=== PATIENT | female | born 1990 | race Caucasian/White ===

== ENCOUNTER 2016-09-24 14:57 | Emergency (ER) | payer MEDICAID, OTHER ==
[~2016-09-24] VITALS: Ht 154.9 cm; Wt 45.5 kg
[~2016-09-24 14:57] MED LIST: KLOR20TA6 PO
[2016-09-24 15:03] VITALS: BP 128/74; PULSE 103; RESP 14; TEMP 98.7; O2SAT 97
[2016-09-24] MEDS ORDERED: SODIUM CHLORIDE 0.9% FLUSH 5 ML FLUSH IVF PRN ×2 (15:30→16:15)
[2016-09-24 15:47] LABS: BLOOD, URINE NEG (NEG); COMMENT (UR) CULT NOT INDICATED; CULTURE IF INDICATED CULT NOT INDICATED; GLUCOSE,URINE NEG (NEG); KETONE, URINE NEG (NEG); NITRITE,URINE NEG (NEG); PH, URINE 6.5 (5.0-8.5); SQUAMOUS EPITHELIAL CELL URINE 3 /hpf (0-5); URINE COLOR YELLOW (YELLW/STRAW)
[2016-09-24] MEDS ORDERED: KETOROLAC TROMETHAMINE 30 MG/ML (IVP) VIAL IV PUSH ONE (16:15)
[2016-09-24] MEDS ORDERED: SODIUM CHLOR 0.9% 1000 ML INJ 1,000 ML IV ONE (16:15)
[2016-09-24] MEDS ORDERED: ONDANSETRON HCL 4 MG/2 ML VIAL IV PUSH ONE (16:15)
--- NOTE | 2016-09-24 16:15 | PD ---
HPI Chief Complaint: Flank/Kidney Pain Time Seen by Provider: 15:54 Travel History International Travel<30 days: No Contact w/Intl Traveler<30days: No Traveled to known affect area: No History of Present Illness HPI 26yo F with PMH of nephrolithiasis presents to the ED with c/o epigastric abdominal pain that radiates to right upper abdomen to right back since last night. Denies any fever, chest pain, sob, vomiting, urinary complaints. Pt went to urgent care and was sent here for further testing. PFSH Past Medical History Arthritis: No Asthma: Yes Autoimmune Disease: No Depression: Yes Heart Rhythm Problems: No Cancer: No Cardiovascular Problems: No High Cholesterol: No Chemotherapy: No Chest Pain: No Congestive Heart Failure: No COPD: No Cerebrovascular Accident: No Diabetes: No Diminished Hearing: No Endocrine: No Gastrointestinal Disorders: Yes GERD: Yes Genitourinary: No Headaches: Yes Hiatal Hernia: No Immune Disorder: No Kidney Stones: No Musculoskeletal: Yes Neurologic: Yes Psychiatric: No Reproductive: No Respiratory: Yes Migraines: Yes Radiation Therapy: No Renal Failure: No Seizures: No Sickle Cell Disease: No Sleep Apnea: No Thyroid Disease: No Ulcer: Yes ?: Not : 5 Para: 1 Miscarriage: 4 Ovarian Cysts: Yes Dilation and Curettage (D&C): Yes (x2) Past Surgical History Abdominal Surgery: No AICD: No Arteriovenous Shunt: No Cardiac Surgery: No Ear Surgery: No Endocrine Surgery: No Eye Surgery: No Genitourinary Surgery: No Gynecologic Surgery: Yes (RIGHT FALLOPIAN TUBE REMOVED) Insulin Pump: No Joint Replacement: No Oral Surgery: No Pacemaker: No Thoracic Surgery: No Other Surgery: Yes Social History Alcohol Use: No Tobacco Use: Yes (PPD) Substance Use: No Allergies-Medications (Allergen,Severity, Reaction): Coded Allergies: No Known Allergies (Verified , 09/24/16) Reported Meds & Prescriptions Reported Meds & Active Scripts Active Review of Systems Except as stated in HPI: all other systems reviewed are Neg Physical Exam Narrative GENERAL: 26yo F not in acute distress. SKIN: Warm and dry. HEAD: Atraumatic. Normocephalic. EYES: Pupils equal and round. No scleral icterus. No injection or drainage. ENT: No nasal bleeding or discharge. Mucous membranes pink and moist. NECK: Trachea midline. No JVD. CARDIOVASCULAR: Regular rate and rhythm. No murmur appreciated. RESPIRATORY: No accessory muscle use. Clear to auscultation. Breath sounds equal bilaterally. GASTROINTESTINAL: Abdomen soft,+TTP RUQ. No rebound tenderness or guarding. BACK: +TTP paraspinal muscle on right lumbar spine. No CVA tenderness. MUSCULOSKELETAL: No obvious deformities. No clubbing. No cyanosis. No edema. NEUROLOGICAL: Awake and alert. No obvious cranial nerve deficits. Motor grossly within normal limits. Normal speech. PSYCHIATRIC: Appropriate mood and affect; insight and judgment normal. Data Data Last Documented VS Vital Signs Date Time Temp Pulse Resp B/P Pulse Ox O2 Delivery O2 Flow Rate FiO2 09/24/16 17:23 100 09/24/16 15:03 98.7 103 14 128/74 Room Air Orders Urinalysis - C+S If Indicated (09/24/16 15:07) Ed Urine Pregnancytest Poc (09/24/16 15:16) Sodium Chloride 0.9% Flush (Ns Flush) (09/24/16 15:30) Basic Metabolic Panel (Bmp) (09/24/16 16:10) Complete Blood Count With Diff (09/24/16 16:10) Lipase (09/24/16 16:10) Prothrombin Time / Inr (Pt) (09/24/16 16:10) Act Partial Throm Time (Ptt) (09/24/16 16:10) Ct Abd/Pel W Iv Contrast(Rout) (09/24/16 16:10) Iv Access Insert/Monitor (09/24/16 16:10) Ecg Monitoring (09/24/16 16:10) Oximetry (09/24/16 16:10) Sodium Chloride 0.9% Flush (Ns Flush) (09/24/16 16:15) Ketorolac Inj (Toradol Inj) (09/24/16 16:15) Ondansetron Inj (Zofran Inj) (09/24/16 16:15) Sodium Chlor 0.9% 1000 Ml Inj (Ns 1000 M (09/24/16 16:15) Hepatic Functional Panel (09/24/16 18:08) Iohexol 350 Inj (Omnipaque 350 Inj) (09/24/16 18:28) Labs Laboratory Tests Test 09/24/16 09/24/16 15:10 16:55 Urine Color YELLOW Urine Turbidity HAZY Urine pH 6.5 Urine Specific [place] 1.022 Urine Protein NEG mg/dL Urine Glucose (UA) NEG mg/dL Urine Ketones NEG mg/dL Urine Occult Blood NEG Urine Nitrite NEG Urine Bilirubin NEG Urine Urobilinogen LESS THAN 2.0 MG/DL Urine Leukocyte Esterase NEG Urine RBC 2 /hpf Urine WBC 1 /hpf Urine Squamous Epithelial 3 /hpf Cells Urine Amorphous Sediment RARE Microscopic Urinalysis Comment CULT NOT INDICATED White Blood Count 10.7 TH/MM3 Red Blood Count 4.45 MIL/MM3 Hemoglobin 14.6 GM/DL Hematocrit 42.7 % Mean Corpuscular Volume 95.8 FL Mean Corpuscular Hemoglobin 32.8 PG Mean Corpuscular Hemoglobin 34.3 % Concent Red Cell Distribution Width 13.3 % Platelet Count 184 TH/MM3 Mean Platelet Volume 9.1 FL Neutrophils (%) (Auto) 80.3 % Lymphocytes (%) (Auto) 15.9 % Monocytes (%) (Auto) 3.1 % Eosinophils (%) (Auto) 0.1 % Basophils (%) (Auto) 0.6 % Neutrophils # (Auto) 8.6 TH/MM3 Lymphocytes # (Auto) 1.7 TH/MM3 Monocytes # (Auto) 0.3 TH/MM3 Eosinophils # (Auto) 0.0 TH/MM3 Basophils # (Auto) 0.1 TH/MM3 CBC Comment DIFF FINAL Differential Comment Prothrombin Time 10.2 SEC Prothromb Time International 0.9 RATIO Ratio Activated Partial 25.2 SEC Thromboplast Time Sodium Level 139 MEQ/L Potassium Level 3.8 MEQ/L Chloride Level 107 MEQ/L Carbon Dioxide Level 24.6 MEQ/L Anion Gap 7 MEQ/L Blood Urea Nitrogen 14 MG/DL Creatinine 0.96 MG/DL Estimat Glomerular Filtration 69 ML/MIN Rate Random Glucose 117 MG/DL Calcium Level 8.8 MG/DL Total Bilirubin 0.2 MG/DL Direct Bilirubin LESS THAN 0.1 MG/DL Indirect Bilirubin 0.1 MG/DL Aspartate Amino Transf 11 U/L (AST/SGOT) Alanine Aminotransferase 14 U/L (ALT/SGPT) Alkaline Phosphatase 98 U/L Total Protein 7.3 GM/DL Albumin 3.8 GM/DL Lipase 156 U/L [facility] Medical Decision Making Medical Screen Exam Complete: Yes Emergency Medical Condition: Yes Differential Diagnosis Cholecystitis vs. nephrolithiasis vs. colitis vs. pyelonephritis Narrative Course 26yo F here with right back and upper abdominal pain. Labs reviewed, no leukocytosis. Lipase normal at 156. LFTs unremarkable. UA negative. CTa/p showed normal gallbladder. Right cystic lesion in pelvis. Pt given zofran and toradol and pain is relieved. Pt tolerating PO. Return precautions given. Urine negative. Diagnosis Primary Impression: Abdominal pain Qualified Code: R10.11 - Right upper quadrant abdominal pain Patient Instructions: General Instructions Departure Forms: Tests/Procedures Additional Instructions: Please follow up with your PMD in 3-7 days. Return to the ED if symptoms worsen. Med/Other Pt SpecificInfo: Prescription(s) given Scripts Acetaminophen (Acetaminophen Extra Strength)500 Mg [id number] Mg PO Q6H PRN #20 CAP Ref 0 Prov:Adri Hansen DO 09/24/16 Disposition: 01 DISCHARGE HOME Condition: Stable Adri Hansen DO Sep 24, 2016 16:15
[2016-09-24 17:17] LABS: AUTOMATED NEUTROPHIL # 8.6 TH/MM3 (1.8-7.7); BASOPHIL # 0.1 TH/MM3 (0-0.2); BASOPHIL % 0.6 % (0.0-2.0); EOSINOPHIL % 0.1 % (0.0-4.0); HEMATOCRIT 42.7 % (35.0-46.0); HEMO FLAGS DIFF FINAL; LYMPH % 15.9 % (9.0-44.0); LYMPHOCYTE # 1.7 TH/MM3 (1.0-4.8); MEAN CELL VOLUME 95.8 FL (80.0-100.0); MEAN CORPUSCULAR HEMOGLOBIN 32.8 PG (27.0-34.0); MEAN CORPUSCULAR HGB CONC 34.3 % (32.0-36.0); MONO % 3.1 % (0.0-8.0); NEUT % 80.3 % (16.0-70.0); PLATELET COUNT 184 TH/MM3 (150-450); RED BLOOD COUNT 4.45 MIL/MM3 (4.00-5.30); RED CELL DISTRIBUTION WIDTH 13.3 % (11.6-17.2); WHITE BLOOD COUNT 10.7 TH/MM3 (4.0-11.0)
[2016-09-24 17:23] VITALS: O2SAT 100
[2016-09-24 17:27] LABS: APTT (PATIENT) 25.2 SEC (24.3-30.1); INTERNATIONAL NORMALIZED RATIO 0.9 RATIO; PROTHROMBIN TIME - PATIENT 10.2 SEC (9.8-11.6)
[2016-09-24 17:38] LABS: BICARBONATE 24.6 MEQ/L (21.0-32.0); POTASSIUM 3.8 MEQ/L (3.5-5.1)
[2016-09-24] MEDS ORDERED: IOHEXOL 350 MG/ML 10 ML VIAL (for RAD DIAG) IV ONE (18:28)
--- NOTE | 2016-09-24 18:36 | RADRPT ---
EXAM DATE/TIME: 09/24/2016 18:17 [facility] COMPARISON: No previous studies available for comparison. INDICATIONS : Right flank pain past 2 days. IV CONTRAST: 70 cc Omnipaque 350 (iohexol) IV ORAL CONTRAST: No oral contrast ingested. RADIATION DOSE: 4.50 CTDIvol (mGy) MEDICAL HISTORY : None SURGICAL HISTORY : None. ENCOUNTER: Initial ACUITY: 2 days PAIN SCALE: 6/10 LOCATION: Right flank TECHNIQUE: Volumetric scanning of the abdomen and pelvis was performed. Using automated exposure control and ad justment of the mA and/or kV according to patient size, radiation dose was kept as low as reasonably achievable to obtain optimal diagnostic quality images. FINDINGS: LOWER LUNGS: The visualized lower lungs are clear. LIVER: Homogeneous density without lesion. There is no dilation of the biliary tree. No calcified gallston es. The gallbladder is unremarkable in appearance. SPLEEN: Normal size without lesion. PANCREAS: Within normal limits. KIDNEYS: Normal in size and shape. There is no mass or hydronephrosis. There is a small nonobstructing 2-3 mm left renal calculus in the upper pole. ADRENAL GLANDS: Within normal limits. VASCULAR: There is no aortic aneurysm. BOWEL/MESENTERY: The stomach, small bowel, and colon demonstrate no acute abnormality. There is no free intraperitone al air or fluid. ABDOMINAL WALL: Within normal limits. RETROPERITONEUM: There is no lymphadenopathy. BLADDER: No wall thickening or mass. REPRODUCTIVE: Uterus and left adnexa are unremarkable. There is a complex cystic rim-enhancing lesion in the right side of the pelvis measuring up to approximately 1.7 x 2.2 x 1.7 cm in diameter. There is a small jesusita unt of free fluid. INGUINAL: There is no lymphadenopathy or hernia. MUSCULOSKELETAL: Within normal limits for patient age. CONCLUSION: 1. Complex cystic rim-enhancing lesion in the right side of the pelvis is noted likely representing a partially decompressed cyst. There is a small amount of free fluid in the cul-de-sac. 2. The bowel gas pattern appears unremarkable. No oral contrast was given limiting sensitivity. 3. Small nonobstructing left renal calculus in the upper pole measuring approximately 2-3 mm in size. Rod Sellers MD on September 24, 2016 at 18:31 Board Certified Radiologist. This report was verified electronically.
[2016-09-24 18:53] LABS: ALKALINE PHOSPHATASE 98 U/L (45-117); ALT (GPT) 14 U/L (10-53); AST (GOT) 11 U/L (15-37); INDIRECT BILIRUBIN 0.1 MG/DL (0.0-0.8); TOTAL BILIRUBIN ADULT 0.2 MG/DL (0.2-1.0)
[2016-09-24] MEDS ORDERED: EXTR500C PO (19:03)
== END 2016-09-24 19:52 | disposition home or self-care (01) ==
LOC: NEPA 14:57
DX: R10.11 Right upper quadrant pain (principal); J45.909 Unspecified asthma, uncomplicated; K21.9 Gastro-esophageal reflux disease without esophagitis; F17.210 Nicotine dependence, cigarettes, uncomplicated
CPT/HCPCS: 74177; 80048; 80076; 81001; 83690; 84703; 85025; 85610; 85730; 96374; 96375; 99284; J1885; J2405; J7030; Q9967

== ENCOUNTER 2017-07-26 16:15 | Emergency (ER) | payer MEDICAID ==
[~2017-07-26] VITALS: Ht 154.9 cm; Wt 50.0 kg
[~2017-07-26 16:15] MED LIST changes: +EXTR500C PO; -KLOR20TA6 PO
[2017-07-26 16:18] VITALS: BP 140/88; PULSE 88; RESP 18; TEMP 97.7; O2SAT 100
[2017-07-26] MEDS ORDERED: LIDOCAINE 1%/EPINEPHrine 1:100,000 SOLN 20 ML VIAL INFIL ONE (18:00)
--- NOTE | 2017-07-26 19:08 | RADRPT ---
EXAM DATE/TIME: 07/26/2017 18:31 [facility] COMPARISON: No previous studies available for comparison. INDICATIONS : Right knee pain and swelling. MEDICAL HISTORY : Gastroesophageal reflux disease. Ovarian cysts. SURGICAL HISTORY : Right fallopian tube removed. D&C. ENCOUNTER: Initial ACUITY: 1 day PAIN SCORE: 7/10 LOCATION: Right leg. TECHNIQUE: Venous ultrasound of the leg was performed from the inguinal ligament to the proximal calf. Real-jane e, color Doppler and spectral tracing, compression and augmentation techniques were used. FINDINGS: There is normal compressibility of the deep venous system from the inguinal region to the proximal ca lf. No echogenic clot is seen in the lumen of the common femoral, femoral, popliteal, and posterior tibial veins. There is a normal response of the venous system to proximal and distal augmentation an d respiration. CONCLUSION: 1. Negative for deep venous thrombosis. Fluid collection anterior to upper knee measuring up to 2.3 x 2.7 x 2.2 cm. Cedric Chatman MD on July 26, 2017 at 19:05 Board Certified Radiologist. This report was verified electronically.
[2017-07-26] MEDS ORDERED: ACETAMINOPHEN/HYDROcodone 325 MG/5 MG TAB PO ONE (19:15)
[2017-07-26 19:19] VITALS: BP 96/55; PULSE 58; RESP 15; O2SAT 100
--- NOTE | 2017-07-26 20:12 | RADRPT ---
EXAM DATE/TIME: 07/26/2017 19:27 [facility] COMPARISON: No previous studies available for comparison. EXTERNAL COMPARISON : [facility] INDICATIONS : Nontraumatic knee pain for two months. Ultrasound for DVT negative. Cyst was found on Ultrasound whic h a unsuccessful attempt at drainage occured. MEDICAL HISTORY : Gastroesophageal reflux disease. Ovarian cysts SURGICAL HISTORY : D&C ENCOUNTER: Initial ACUITY: 2 months PAIN SCORE: 8/10 LOCATION: Right knee FINDINGS: Four view examination of the right knee demonstrates no evidence of fracture or dislocation. Bony mi neralization is normal. The articular surfaces are intact. CONCLUSION: 1. No acute bony abnormality. Small joint effusion. Cedric Chatman MD on July 26, 2017 at 19:51 Board Certified Radiologist. This report was verified electronically.
[2017-07-26] MEDS ORDERED: IBUP-232 PO (20:17)
--- NOTE | 2017-07-26 20:23 | PD ---
HPI Chief Complaint: Pain: Acute or Chronic Time Seen by Provider: 17:56 Travel History International Travel<30 days: No Contact w/Intl Traveler<30days: No Traveled to known affect area: No History of Present Illness HPI 27 yo F complains of pain in the right knee. Since it is minimal swelling. Duration about 3 days. 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 No fever. She denies any specific traumatic injury. No falls. Pain is worse with ambulation. PFSH Past Medical History Arthritis: No Asthma: Yes Autoimmune Disease: No Depression: Yes Heart Rhythm Problems: No Cancer: No Cardiovascular Problems: No High Cholesterol: No Chemotherapy: No Chest Pain: No Congestive Heart Failure: No COPD: No Cerebrovascular Accident: No Diabetes: No Diminished Hearing: No Endocrine: No Gastrointestinal Disorders: Yes GERD: Yes Genitourinary: No Headaches: Yes Hiatal Hernia: No Heparin Induced Thrombocytopen: No Hypertension: No Immune Disorder: No Implanted Vascular Access Dvce: No Kidney Stones: No Musculoskeletal: Yes Neurologic: Yes Psychiatric: No Reproductive: No Respiratory: Yes Migraines: Yes Radiation Therapy: No Renal Failure: No Seizures: No Sickle Cell Disease: No Sleep Apnea: No Thyroid Disease: No Ulcer: Yes ?: Unknown : 5 Para: 1 Miscarriage: 4 Ovarian Cysts: Yes Dilation and Curettage (D&C): Yes (x2) Past Surgical History Abdominal Surgery: No AICD: No Arteriovenous Shunt: No Cardiac Surgery: No Ear Surgery: No Endocrine Surgery: No Eye Surgery: No Genitourinary Surgery: No Gynecologic Surgery: Yes (RIGHT FALLOPIAN TUBE REMOVED) Insulin Pump: No Joint Replacement: No Neurologic Surgery: No Oral Surgery: No Pacemaker: No Thoracic Surgery: No Other Surgery: Yes Social History Alcohol Use: No Tobacco Use: Yes (PPD) Substance Use: No Allergies-Medications (Allergen,Severity, Reaction): Coded Allergies: No Known Allergies (Verified , 09/24/16) Reported Meds & Prescriptions Reported Meds & Active Scripts Active No Active Prescriptions or Reported Medications Review of Systems General / Constitutional: No: Fever Musculoskeletal: Positive: Pain Neurologic: No: Sensory Disturbance Physical Exam Narrative GENERAL: 27-year-old female pleasant well-nourished well-developed a speaking sentences SKIN: Warm and dry. HEAD: Normocephalic. EYES: No scleral icterus. No injection or drainage. NECK: Supple, trachea midline. No JVD or lymphadenopathy. MUSCULOSKELETAL: No cyanosis, or edema. Suprapatellar joint effusion on the right side. Trace ballottement on the right side. No gross deformity otherwise. Minimal swelling diffusely along the right lower extremity. Data Data Last Documented VS Vital Signs Date Time Temp Pulse Resp B/P (MAP) Pulse Ox O2 Delivery O2 Flow Rate FiO2 07/26/17 19:19 58 15 96/55 (69) 100 07/26/17 16:18 97.7 VS reviewed Orders Orders Us Leg Venous Doppler (07/26/17 ) Lidocai-Epi 1%-1:100,000 Inj (Xylocaine- (07/26/17 18:00) Acetamin-Hydrocod 325-5 Mg ([place] 5-325 (07/26/17 19:15) Knee, Complete (4vws) (07/26/17 19:09) Ice/Cold Pack (07/26/17 19:09) MDM Medical Decision Making Medical Screen Exam Complete: Yes Emergency Medical Condition: Yes Medical Record Reviewed: Yes Differential Diagnosis fracture, septic arthritis, effusion Narrative Course R Knee: tiny effusion Leg doppler: no DVT RICE therapy discussed follow up discussed Diagnosis Primary Impression: Joint effusion of knee Qualified Codes: M25.461 - Effusion, right knee Referrals: Minoo España MD call for appointment Additional Instructions: You have a choice when it comes to health care, and we are glad that you chose [facility]. Hopefully, we have met your expectations on today's visit. You are welcome to return to [facility] at any time, as we are committed to meeting the health care needs of our community. Med/Other Pt SpecificInfo: Prescription(s) given Scripts Ibuprofen (Ibuprofen) 600 Mg Tab 600 MG PO Q8HR Y for PAIN for 5 Days, TAB 0 Refills Prov: Jack Berry MD 07/26/17 Disposition: 01 DISCHARGE HOME Condition: Stable Jack Berry MD Jul 26, 2017 20:23
== END 2017-07-26 20:57 | disposition home or self-care (01) ==
LOC: NEPD 16:15
DX: M25.461 Effusion, right knee (principal)
CPT/HCPCS: 73564; 93971; 99284